=== PATIENT | female | born 2005 | race Caucasian/White ===

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

== ENCOUNTER 2025-02-13 10:41 | Outpatient (CLI) | payer BC, SELFPAY ==
--- OUTSIDE RECORDS SUMMARY | 2024-04-07 07:00 | XMS_ITS ---
Author [facility] Address [address] [place] [phone] Care Team Providers Care Data Entry Associate Name Role Phone Corona Mckenna Primary Care Provider REASON FOR VISIT phsical and TB test Encounters Encounter Location Date Provider Diagnosis [facility] [address] [place] [id number] 04/07/2024 Corona Mckenna Plan Of Treatment No Information Progress Notes * Urvashi SCHUMACHERDOB:[birth year] (19 yo F)Acc No.[id number]:04/07/2024 Physical Patient: Urvashi KESSLER Provider: Shanna Mckenna M.D. :2005 A ge:18 Y S ex:Female Date:04/07/2024 Address:[address], [place] Subjective: * Chief Complaints: * 1 . phsical and TB test. * Medical History: Objective: * Vitals: Assessment: Plan: * Treatment: * Images: Billing Information: * Visit Code: * Procedure Codes: * Electronic signature of Danyelle Mckenna MD on 02/16/2025 at 10:56 AM EDT Sign off status: Pending * Provider: Shanna Mckenna M.D. Date: 06/08/2023 Generated for Printi ng/Gerard/eTransmitting on: 10:56 AM EDT
--- OUTSIDE RECORDS SUMMARY | 2024-10-15 07:15 | XMS_ITS ---
[facility] Organization [facility] [address] [place] [phone] Care Team Providers Care Greenhouse Or Nursery Transplanter Name Role Phone Corona Mckenna Primary Care Provider [phone] Allergies No Known Allergies REASON FOR VISIT spots on fingers, possible infection Encounters Encounter Location Date Provider Diagnosis [facility] [address] [facility] [address] [place] [id number] 10/15/2024 Corona Mckenna Plan Of Treatment No Information Progress Notes * Urvashi SCHUMACHERDOB:[birth year] (19 yo F)Acc No.[id number]:10/15/2024 Progress Notes Patient: Urvashi KESSLER Provider: Shanna Mckenna M.D. :2005 A ge:19 Y S ex:Female Date:10/15/2024 [address] [place] Subjective: * Chief Complaints: [...] 10/15/2024 Generated for Victor Hugo gomez/Gerard/Pricila on: 1 10:56 AM EDT
[2025-02-13 15:00] LABS: Monoscreen (Rapid) Negative (Negative)
[2025-02-13 16:32] LABS: Hepatitis C Ab Qual. W/ RFX NEGATIVE (Negative)
[2025-02-14 07:10] LABS: Hepatitis B Surface Antigen Negative (Negative)
--- OUTSIDE RECORDS SUMMARY | 2025-02-16 10:56 | XMS_ITS | Clinical Summary ---
[facility] Address [address] [place] [address] Care Team Providers Care Elastic Attacher Coverstitch Name Role Phone Corona Mckenna MD Primary Care Provider [phone] Allergies No known active allergies Medications methylPREDNISol one (MEDROL) 4 MG dose packIndications :Acute URI,Acute pansinusitis, recurrence not specified Take as directed on package instructions. 21 tablet 12/26/2023 Active Social History Tobacco Use Types Packs/Day Years Used Date Smoking Tobacco: Never Smokeless Tobacco: Never Tobacco Cessation:Counseling Given: Not Answered Alcohol Use Standard Drinks/Week Comments Never 0 (1 standard drink = 0.6 oz pur e alcohol) Abuse Screen Answer Date Recorded Unsafe at Home or Work/School Not on file Feels Threatened by Someone? Not on file 12/2022 Does Anyone Keep You from Co ntacting Others or Doint Things Outside the Home? Not on file 02/05/2023 Physical Sign of Abuse Present Not on file 1 Housing Stability Answer Date Recorded Current Living Arrangements Not on file 12/2022 Potentially Unsafe Housing Conditions Not on kelly e 02/05/2023 Family and Community Support Answer Collin e Recorded Help with Day-to-Day Activities Not on file 02/05/2023 Lonely or Isolated Not on file 02/05/2023 Employment Answer Date Recorded Do you want help finding or keeping work or a nanda b? Not on file 02/05/2023 Disabilities Answer Date Recorded Concentrating, Remembering, or Making Decisions Difficulty Not on file 02/05/2023 Doing Errands Independently Difficulty Not on fi le 02/05/2023 Education Answer Date Recorded Help with school or training? Not on file Preferred Language Not on file 02/05/2023 Comments No Sex and Gender Information Value Date Recorded Sex Assigned at Not on file Legal Sex Female 12:27 PM EDT Gender Identity Not on file Sexual Orientation Not on file Last Filed Vital Signs Vital Sign Reading Time Taken Comments Blood Pressure 121/74 12/26/2023 12:34 PM EDT Pulse 72 12/26/2023 12:34 PM EDT Temperature 36.7 C (98.1 F) 12/26/2023 12:34 PM EDT Respiratory Rate 20 12/26/2023 12:34 PM EDT Oxygen Saturation 100% 12/26/2023 12:34 PM EDT Inhaled Oxygen Concentration - - Weight 68 kg (150 lb) 12/26/2023 12:34 PM EDT Height 160 cm (5' 3 ) 12/26/2023 12:34 PM EDT Body Mass Index 26.57 12/26/2023 12:34 PM EDT Body Mass Index Percentile 87.48% 12/26/2023 12: 34 PM EDT Growth Chart: CDC (Girls, 2- 20 Years) Plan of Treatment Health Maintenance Due Date Last Done Comments ANNUAL PHYSICAL 2005 HEPATITIS C SCREENING 2005 HPV VACCINES (1 - 3-dose series) 2020 MENINGOCOCCAL B VACCINE (1 of 2 - Standard) 2021 TDAP/TD VACCINES (1 - Tdap) 2024 INFLUENZA VACCINE 11/28/2024 03/02/2022, , 03/28/2019, Additional history exists MENINGOCOCCAL VACCINE Aged Out No tanisha ariel eligible based on patient's age to complete this topic Pneumococcal Vaccine 0-49 Aged Out No longer eligible based on patient's age to complete this topic Insurance [facility] EM[facility] BLUE [facility] PPO Care Teams Elastic Attacher Coverstitch Relationship Specialty Start Date End Date Corona Mckenna MD [address] [facility] [address] [address] [place] [address] PCP - General Family Medicine 12/26/23
--- OUTSIDE RECORDS SUMMARY | 2025-02-16 10:56 | XMS_ITS | Clinical Summary ---
Author Organization [facility] Address [address] [place] [address] Care Team Providers Care Motor Home Electrical Foreman Name Role Phone Pcp, No Primary Care Provider Unavailabl e Allergies No known active allergies Medications No known medications Active Problems Problem Noted Date Diagnosed Date Elbow pain 07/05/2020 Foot injury 01/22/2017 Pain of foot 01/22/2017 History of prematurity 07/11/2016 Twin 07/11/2016 Uncontrolled moderate persistent allergic asthma 07/11/2016 Allergic rhinitis 07/07/2016 Asthma 07/07/2016 Immune deficiency disorder 07/07/2016 Family History Medical History Relation Name Comments No Known Problems Father No Known Problems Mother Relation Name Status Comments Father Mother Social History Tobacco Use Types Packs/Day Years Used Date Smoking Tobacco: Never Smokeless Tobacco: Never Comments Unknown Sex and Gender Information Value Date Recorded Sex Assigned at Not on file Legal Sex Female 8:04 PM EDT Gender Identity Not on file Sexual Orientation Not on file Last Filed Vital Signs Vital Sign Reading Time Taken Comments Blood Pressure 113/64 12/23/2020 7:08 AM EDT Pulse 68 12/23/2020 7:08 AM EDT Temperature - - Respiratory Rate - - Oxygen Saturation 97% 12/23/2020 7:08 AM EDT Inhaled Oxygen Concentration - - Weight 72.5 kg (159 lb 13.3 oz) 12/23/2020 7:08 AM EDT Height 161.3 cm (5' 3.5 ) 12/23/2020 7:08 AM EDT Body Mass Index 27.87 12/23/2020 7:08 AM EDT Body Mass Index Percentile 94.21% 12/23/2020 7:0 8 AM EDT Growth Chart: CDC (Girls, 2- 20 Years) Plan of Treatment Health Maintenance Due Date Last Done Comments [facility]-Depression Screening 2005 [facility]-/Child/Adol SDOH Screenings 2005 Fluoride Varnish 03/03/2006 [facility]-Varicella Vaccines (1 of 2 - 13+ 2-dose series) 2018 HPV Vaccines (1 - 3-dose series) 2020 [facility]- SDOH Screenings 07/02/2023 [facility]-Adult SDOH Screenings 07/02/2023 [facility]-DTaP,Tdap,and Td Vaccines (1 - Tdap) 2024 [facility]-Hepatitis B Vaccines (1 of 3 - 19+ 3-dose series) 2024 [id number] Vaccine (2 - 2024-26 season) 2024 11/06/2020 [facility]-Influenza Vaccine (#1) 12/29/202403/19, 03/28/2019, 02/04/2018, Additional history exists [facility]-Zoster Vaccines (1 of 2) 07/02/2055 [facility]-HIB Vaccines Aged Out No longer e ligible based on patient's age to complete this topic [facility]-Hepatitis A Vaccines Aged Out No longer eligible based on patient's age to complete this topic [facility]-IPV Vaccines Aged Out No longer e ligible based on patient's age to complete this topic [facility]-Pneumococcal Vaccine: Pediatrics (0 to 5 Years) and At-Risk Patients (6 to 49 Years) Aged Out No longer eligible based on patient's age to complete this topic [facility]-Rotavirus Vaccines Aged Out No lo nger eligible based on patient's age to complete this topic Insurance [employer] [id number] BRENDA Care Teams Motor Home Electrical Foreman Relationship Specialty Start Date End Date Pcp, [place] [address] PCP - General 12/23/20
--- OUTSIDE RECORDS SUMMARY | 2025-02-16 10:56 | XMS_ITS | Patient Health Record ---
Author Organization [facility] Address [address] [place] [phone] Care Team Providers Care Commercial Baker Helper Name Role Phone Clarisa Corona Primary Care Provider Allergies No Known Allergies Medications Medication SIG (Take, Route, Frequency, Duration) Notes Start Date End Date Status Mupirocin 2 % 1 application Recordings Librarian ally once a day 12/20/2022 Not-Taking Bactrim DS 800-160 MG 1 tablet Orally Tw ice a day; Duration: 10 day(s) 12/20/2022 Not-Cem ing Cefdinir 300 MG 1 cap(s) orally ever y 12 hours; Duration: 10 day(s) 09/13/2022 Not-Taking Ymjcrzqqm-Flgwrwql-VM 30-2-10 MG/5ML 5-10 ml orally 4 times per day, prn 09/13/2022 Not-Taking Immunizations Vaccine Route Administration Date Status Comme nts xFluzone (6mos and older)-trivalent IM Intramuscular 03/29/2012 Administered MenQuadfi IM Intramuscular 05/31/2022 Administered Fluzone Quad (6months&older) IM Intramuscular 03/01/2015 Administered Fluzone Quad (6months&older) IM Intramuscular 03/03/2017 Administered Fluzone Quad (6months&older) IM Intramuscular 02/04/2018 Administered Fluzone Quad (6months&older) IM Intramuscular 03/28/2019 Administered Fluzone Quad (6months&older) IM Intramuscular 03/19/2020 Administered COVID 19 Pfizer Unknown 11/06/2020 Administered Problems Problem Type SNOMED Code ICD Code Onset Dates Problem Status W/U Status Risk Notes Problem Asthma (473970053) ASTHMA NOS (493.90) Active confirmed Problem Sinusitis (47657862) Sinusitis (J32.9) Active confirmed Problem Vitamin D deficiency (16462018) Vitamin D deficiency (E55.9) Active confirmed Problem Otitis externa (7800384) Otitis externa (H60.90) Active confirmed Problem Environmental allergy (775119464) Environmental allergies (Z91.048) Active confirmed Problem Child health medical examination (188011960) Encounter for routine child health examination without abnormal findings (Z00.129) Active confirmed Problem Mild intermittent asthma (318983057) Mild intermittent asthma without complication (J45.20) Active confirmed Problem Otitis externa of right ear (3896727452505671 ) Otitis externa of right ear, unspecified chronicity, unspecified type (H60.91) Active confirmed Plan Of Treatment No Information Insurance Providers Payer Name Payer Address Payer Phone Subscriber Number Group Number Insured Name Patient Relationship to Insured Coverage Start Date Coverage End Date ROBERT MARQUEZ CROSSUE [facility] P O [facility] [id number] [place] [address] [id number] HUMBERTO SCHUMACHER III Child - Insured has Financial Responsibility Medical (General) History Medical History History ICD Code allergic rhinitis asthma Surgical History Surgery Date(Month/Year) Hospitalization History Reason Date(Month/Year)
== END 2025-02-13 23:59 ==
LOC: LAB.DROPOF 02-16 10:42
PROVIDERS: PCP Family Medicine; Visit Provider Student in an Organized Health Care Education/Training Program
DX: J02.9 Acute pharyngitis, unspecified (principal); R53.83 Other fatigue; Z11.59 Encounter for screening for other viral diseases; Z11.4 Encounter for screening for human immunodeficiency virus [HIV]
CPT/HCPCS: 86318; 86803; 87340; 87389

== ENCOUNTER 2025-03-01 12:07 | Outpatient (CLI) | payer BC, SELFPAY ==
--- OUTSIDE RECORDS SUMMARY | 2024-04-07 06:00 | XMS_ITS ---
[facility] Address [address] [place] [id number] Care Team Providers Care Loom Fixer Name Role Phone Corona Mckenna Primary Care Provider [phone] REASON FOR VISIT phsical and TB test Encounters Encounter Location Date Provider Diagnosis [facility] [address] [place] [id number] 04/07/2024 Corona Mckenna Plan Of Treatment No Information Progress Notes * Urvashi SCHUMACHERDOB:[birth year] (19 yo F)Acc No.[id number]:04/07/2024 Physical Patient: Uvrashi KESSLER Provider: Shanna Mckenna M.D. :2005 A ge:18 Y S ex:Female Date:04/07/2024 [address], [place] Subjective: * Chief Complaints: * 1 . phsical and TB test. * Medical History: Objective: * Vitals: Assessment: Plan: * Treatment: * Images: Billing Information: * Visit Code: * Procedure Codes: * Electronic signature of Danyelle Mckenna MD on 03/02/2025 at 08:01 PM EST Sign off status: Pending * Provider: Shanna Mckenna M.D. Date: 06/08/2023 Generated for Renettai jason/Gerard/eTransmitting on: 05/02/2024 08:01 PM EST
--- OUTSIDE RECORDS SUMMARY | 2024-10-15 06:15 | XMS_ITS ---
[facility] [address] [place] [id number] Care Team Providers Care Scalping Machine Operator Name Role Phone Corona Mckenna Primary Care Provider [phone] Allergies No Known Allergies REASON FOR VISIT spots on fingers, possible infection Encounters Encounter Location Date Provider Diagnosis [facility] [address] [facility] [place] [id number] 10/15/2024 Corona Mckenna Plan Of Treatment No Information Progress Notes * Urvashi SCHUMACHERDOB:[birth year] (19 yo F)Acc No.[id number]:10/15/2024 Progress Notes Patient: Urvashi KESSLER Provider: Shanna Mckenna M.D. :2005 A ge:19 Y S ex:Female Date:10/15/2024 Address[address], [place] Subjective: * Chief Complaints: * 1 . Spots on fingers, possible infection. * ROS: D ERMATOLOGY: no R carlos. n o H karen. G ASTROENTEROLOGY: no N ausea. n o V omiting. n o D iarrhea.? U ROLOGY: no D ifficulty urinating. n o B lood in urine. * Medical History: A llergic rhinitis, Asthma. * Family History: F ather: alive 46 yrs. M other: alive 45 yrs. S iblings: alive. 1 sister(s) - healthy. . * Social History: C URRENT TOBACCO USE S moking Status: Patient does NOT smoke. H ome smoke detector use: yes. Marital Status: Single. * Allergies: N .K.D.A. Objective: * Vitals: Assessment: Plan: * Treatment: * Images: Billing Information: * Visit Code: * Procedure Codes: * Electronic signature of Danyelle Mckenna MD on 03/02/2025 at 08:01 PM EST Sign off status: Pending * Provider: Shanna Mckenna M.D. Date: 0 10/15/2024 Generated for Victor Hugo gomez/Gerard/Pricila on: 05/02/2024 08:01 PM EST
[2025-03-02 00:30] LABS: Coronavirus 19, PCR Not Detected (NotDetected); Influenza A, PCR Not Detected (NotDetected); Influenza B, PCR Not Detected (NotDetected)
--- OUTSIDE RECORDS SUMMARY | 2025-03-02 20:02 | XMS_ITS | Clinical Summary ---
Author Organization [facility] Address [address] [place] [address] Care Team Providers Care Business Risk Consultant Name Role Phone Pcp, No Primary Care [...] of 3 - 19+ 3-dose series) 2024 [id number] Vaccine (2 - 2024-26 season) 2024 11/06/2020 [...] patient's age to complete this topic Insurance [employer] [id number] BRENDA Care Teams Business Risk Consultant Relationship Specialty Start Date End Date Pcp, [place] [address] PCP - General 12/23/20
--- OUTSIDE RECORDS SUMMARY | 2025-03-02 20:02 | XMS_ITS | Patient Health Record ---
Author Organization [facility] Address [address] [place] [phone] Care Team Providers Care Professional Athlete Name Role Phone Clarisa Corona Primary Care Provider Allergies No Known Allergies Medications Medication SIG (Take, Route, Frequency, Duration) Notes Start Date End Date Status Mupirocin 2 % 1 application Milk Powder Grinder ally once a day 12/20/2022 Not-Taking Bactrim DS 800-160 MG 1 tablet Orally Tw ice a day; Duration: 10 day(s) 12/20/2022 Not-Cem ing Cefdinir 300 MG 1 cap(s) orally ever y 12 hours; Duration: 10 day(s) 09/13/2022 Not-Taking Lahqdmhcr-Utksximf-KS 30-2-10 MG/5ML 5-10 ml orally 4 times [...] Status W/U Status Risk Notes Problem Asthma (972042498) ASTHMA NOS (493.90) Active confirmed Problem Sinusitis (67788837) Sinusitis (J32.9) Active confirmed Problem Vitamin D deficiency (56247965) Vitamin D deficiency (E55.9) Active confirmed Problem Otitis externa (9249725) Otitis externa (H60.90) Active confirmed Problem Environmental allergy (685209282) Environmental allergies (Z91.048) Active confirmed Problem Child health medical examination (040408333) Encounter for routine child health examination without abnormal findings (Z00.129) Active confirmed Problem Mild intermittent asthma (342113532) Mild intermittent asthma without complication (J45.20) Active confirmed Problem Otitis externa of right ear (2938478065678180 ) Otitis externa of right ear, unspecified chronicity, unspecified type (H60.91) Active confirmed Plan Of Treatment No Information Insurance Providers Payer Name Payer Address Payer Phone Subscriber Number Group Number Insured Name Patient Relationship to Insured Coverage Start Date Coverage End Date ROBERT MARQUEZ CROSSUE [facility] P O [facility] [id number] [place] [address] [id number] HUMBERTO SCHUMACHER III Child - Insured has Financial Responsibility Medical (General) History Medical History History ICD Code allergic rhinitis asthma Surgical History Surgery Date(Month/Year) Hospitalization History Reason Date(Month/Year)
--- OUTSIDE RECORDS SUMMARY | 2025-03-02 20:02 | XMS_ITS | Clinical Summary ---
[facility] Address [address] [place] [address] Care Team Providers Care Pr Internship Name Role Phone Corona Mckenna MD Primary Care Provider [phone] Allergies No known active allergies Medications methylPREDNISol [...] patient's age to complete this topic Insurance [facility] EMPL[facility]EE [facility] BLUE [facility] PPO Care Teams Pr Internship Relationship Specialty Start Date End Date Corona Mckenna MD [address] [facility] [address] [place] [address] PCP - General Family Medicine 12/26/23
== END 2025-03-01 23:59 | disposition home or self-care (01) ==
LOC: LAB.DROPOF 03-02 20:00
PROVIDERS: PCP Family Medicine; Visit Provider Student in an Organized Health Care Education/Training Program
DX: J06.9 Acute upper respiratory infection, unspecified (principal)
CPT/HCPCS: 87631